=== PATIENT | female | born 1955 | race Caucasian/White ===

== ENCOUNTER 2021-12-02 12:15 | Outpatient (CLI) | payer MEDICARE, OTHER | END 2021-12-02 12:16 | disposition home or self-care (01) | LOC: CSHRAD 12:15 | PROVIDERS: ATTEND Internal Medicine Rheumatology | DX: M54.2 Cervicalgia (principal); M46.1 Sacroiliitis, not elsewhere classified; M25.50 Pain in unspecified joint; L40.9 Psoriasis, unspecified; M47.812 Spondylosis without myelopathy or radiculopathy, cervical region; M47.816 Spondylosis without myelopathy or radiculopathy, lumbar region; M81.0 Age-related osteoporosis without current pathological fracture | CPT/HCPCS: 72050; 72110 ==

== ENCOUNTER 2022-05-19 12:27 | Outpatient (CLI) | payer MEDICARE, OTHER | END 2022-05-19 12:28 | disposition home or self-care (01) | LOC: CSHLAB 12:27 | PROVIDERS: ATTEND Internal Medicine Gastroenterology | DX: Z20.822 Contact with and (suspected) exposure to COVID-19 (principal) | CPT/HCPCS: 87811 ==

== ENCOUNTER 2022-05-24 05:57 | Day surgery (SDC) | payer MEDICARE, OTHER ==
[2022-05-20 10:16] VITALS: BMI 33.9
[2022-05-24] MEDS ORDERED: Lidocaine 1% MPF 2 ML VIAL ONE (07:11)
[2022-05-24] MEDS ORDERED: PROPOFOL 20 ML ONE ×3 (07:49→08:31)
[2022-05-24] MEDS ORDERED: Lidocaine 2% MPF 10 ML AMP (For Epidural Use) ONE (07:49)
[2022-05-24] MEDS ORDERED: Midazolam HCl 2 mg/2 ml Vial ONE (07:49)
[2022-05-24] MEDS ORDERED: Metoprolol Tartrate 5 MG/5 ML VIAL ONE (08:16)
== END 2022-05-24 09:13 | disposition home or self-care (01) ==
LOC: CSHSDC 05:57
PROVIDERS: ATTEND Internal Medicine Gastroenterology
PROC: 0DB58ZZ Excision of Esophagus, Via Natural or Artificial Opening Endoscopic (ICD-10-PCS; principal; 2022-05-24)
PROC: 0DB68ZZ Excision of Stomach, Via Natural or Artificial Opening Endoscopic (ICD-10-PCS; 2022-05-24)
PROC: 0DBM8ZZ Excision of Descending Colon, Via Natural or Artificial Opening Endoscopic (ICD-10-PCS; 2022-05-24)
DX: Z12.11 Encounter for screening for malignant neoplasm of colon (principal); D12.4 Benign neoplasm of descending colon; K21.00 Gastro-esophageal reflux disease with esophagitis, without bleeding; K29.50 Unspecified chronic gastritis without bleeding; K64.9 Unspecified hemorrhoids; K31.7 Polyp of stomach and duodenum; K22.89 Other specified disease of esophagus; I10 Essential (primary) hypertension; Z20.822 Contact with and (suspected) exposure to COVID-19; E11.9 Type 2 diabetes mellitus without complications; E78.5 Hyperlipidemia, unspecified; E03.9 Hypothyroidism, unspecified; Z85.3 Personal history of malignant neoplasm of breast
CPT/HCPCS: 36416; 88305; J2250; J2704